=== PATIENT | female | born 1950 | race Caucasian/White ===

== ENCOUNTER → 2017-09-02 07:41 | Outpatient (CLI) | payer MEDICARE, BC, SELFPAY ==
[2017-09-02 10:24] LABS: Anion Gap 9 (5-15); BUN 12 mg/dL (7-18); BUN/Creat Ratio 22.6 RATIO (10-20); Calcium,Total 8.8 mg/dL (8.5-10.1); Chloride 99 mmol/L (98-107); Creatinine, Serum 0.53 mg/dL (0.55-1.02); EST Glomerular Filtration Rate 121 mL/min (>60); Est Glom Filt Rate - Afr Amer 146 mL/min (>60); Glucose 91 mg/dL (74-106); Sodium Level 134 mmol/L (136-145); Thyroid Stim Hormone (TSH) 2.39 uIU/mL (0.358-3.74)
== END ==
PROVIDERS: Family Provider Family Medicine; PCP Family Medicine; Visit Provider Family Medicine
DX: E22.2 Syndrome of inappropriate secretion of antidiuretic hormone (principal); M85.80 Other specified disorders of bone density and structure, unspecified site; E03.9 Hypothyroidism, unspecified
CPT/HCPCS: 36415; 80048; 82306; 84443

== ENCOUNTER → 2017-11-02 09:43 | Outpatient (CLI) | payer MEDICARE, BC, SELFPAY ==
--- NOTE | 2017-11-02 09:46 | RAD_ITS ---
STUDY: X-RAY - LUMBAR SPINE REASON FOR EXAM: Female, 67 years old. Lower back pain for about a month TECHNIQUE: 5 view(s) of the lumbar spine were obtained. COMPARISON: None FINDINGS: Normal lumbar lordosis. There is no substantial scoliosis. There is a normal alignment of the vertebrae. There is mild multilevel endplate spondylosis of the lumbar vertebrae. Normal disc space heights. Mild facet arthropathy L5-S1, less L4-5 Possible splenic granulomata. RAD/L/S Spine Min 4 Views IMPRESSION: Mild degenerative changes. Electronically Signed: Ginger Muir MD at 3:52 EDT , Service support ,
== END ==
PROVIDERS: Family Provider Family Medicine; PCP Family Medicine; Visit Provider Family Medicine
DX: M47.896 Other spondylosis, lumbar region (principal)
CPT/HCPCS: 72110

== ENCOUNTER 2017-12-21 10:30 | Outpatient (RCR) | payer MEDICARE, BC, SELFPAY ==
--- NOTE | 2017-11-08 14:08 | HP.PTEVAL_ITS ---
Patient's Visit Information FRIDA WILLIAMSON is a 67 year old F referred to Physical Therapy by Manohar Goodrich with a diagnosis of DDD. Date of Evaluation: 11/08/17 Physical Therapist: Serge Castro PT, - Visit Plan Frequency: 2-3x /Week Duration: 4-6 Weeks Plan: SKTC/DKTC, core stab ex's, postural edu, nustep, and HEP - Subjective Subjective: Pt reports she has had LBP for approximately 6 weeks. Pt reports her pain had an insidious onset in nature. Pain is centered in her LB. Pt denies any LE radiculopathy at this time. Pt reports walking tends to increase her pain. Pt reports the only thing that helps with her pain is Advil. Xrays recently, DDD. Pt has osteopenia. Pt reports sleep diff at this time secondary to pain. Pt reports if she sleeps in a supine position, it helps to decrease her pain. Pain is constant in nature. 7/10 pain at rest, 10/10 at worst. - Pain LBP Pain Intensity (Out of 10): 7 Pain Intensity Range: 10 - Objective Neuro: B LE sensation is WNL to light touch. B patellar reflex= 2/3. LE MMT: B LE's 5/5 throughout. L/S ROM: Pt is limited with L/S extension ROM. All other ranges are WNL. Repeated movements: RFIS and MARTY both increase central LBP. RFIL SKTC/DKTC decrreased pain overall - Goals Goal 1:: Decrease LBP x 50% to aid with sleep Goal Time Frame: 4-6 Weeks Goal 2:: Increase core strength x 1 grade to allow pt to ambulate further without limitation Goal Time Frame: 4-6 Weeks Goal 3:: I with HEP Goal Time Frame: 4-6 Weeks - Rehabilitation Potential Physical Therapy Diagnosis: LBP, decreased L/S ROM, and limitations with gait secondary to DDD Rehabilitation Potential: Good - Anticipated Interventions Patient/Client Instruction: Educate patient on: Condition, Plan of Care For the Purpose of:: To improve self management Therapeutic Exercise to Include: Strength training, Endurance training, Postural training, Active ROM, Dynamic Lumbar Stabilization For the Purpose of:: To decrease pain, To increase ROM, To improve muscle performance and motor function Cryotherapy (ice pack, ice massage): Yes For the Purpose of:: To decrease pain Thank you for the opportunity to evaluate your patient. For Medicare and Medicare HMO plans, please review the plan of care and approve it. It will need to be FAXED BACK to us at [phone] for Medicare purposes. Please let me know if there are questions or concerns regarding this plan of care. Physician Signature: Date:
--- NOTE | 2017-12-07 13:31 | HP.PTREVAL ---
Manohar Goodrich, It has been my pleasure to treat FRIDA WILLIAMSON over the last 9 visits for DDD. Please see the progress note below for an update on the physical therapy plan of care! Subjective: Only minor pain this date Objective/Function: Pain has lessened, but pt still limited with sleep and stair negotiation. Pt is able to ambulate approximately 1020 feet I prior to LBP limiting her. Plan Plan: Cont 2 times per week for 3 more weeks Goals Goal 1:: Decrease LBP x 50% to aid with sleep Goal Time Frame: 4-6 Weeks Goal Progress: Progressing Goal 2:: Increase core strength x 1 grade to allow pt to ambulate further without limitation Goal Time Frame: 4-6 Weeks Goal Progress: Progressing Goal 3:: I with HEP Goal Time Frame: 4-6 Weeks Goal Progress: Goal Met Anticipated Interventions Patient/Client Instruction: Educate patient on: Condition, Plan of Care For the Purpose of:: To improve self management Therapeutic Exercise to Include: Strength training, Endurance training, Postural training, Active ROM, Dynamic Lumbar Stabilization For the Purpose of:: To decrease pain, To increase ROM, To improve muscle performance and motor function Cryotherapy (ice pack, ice massage): Yes For the Purpose of:: To decrease pain Please do not hesitate to contact me at [phone] by phone or if you have questions or concerns regarding this new plan of care! Sincerely, Serge Castro, PT,
--- NOTE | 2017-12-07 13:35 | HP.PTREVAL_ITS ---
Manohar Goodrich, It has been my pleasure to treat FRIDA WILLIAMSON over the last 9 visits for DDD. Please see the progress note below for an update on the physical therapy plan of care! Subjective: Only minor pain this date Objective/Function: Pain has lessened, but pt still limited with sleep and stair negotiation. Pt is able to ambulate approximately 1020 feet I prior to LBP limiting her. Plan Plan: Cont 2 times per week for 3 more weeks Goals Goal 1:: Decrease LBP x 50% to aid with sleep Goal Time Frame: 4-6 Weeks Goal Progress: Progressing Goal 2:: Increase core strength x 1 grade to allow pt to ambulate further without limitation Goal Time Frame: 4-6 Weeks Goal Progress: Progressing Goal 3:: I with HEP Goal Time Frame: 4-6 Weeks Goal Progress: Goal Met Anticipated Interventions Patient/Client Instruction: Educate patient on: Condition, Plan of Care For the Purpose of:: To improve self management Therapeutic Exercise to Include: Strength training, Endurance training, Postural training, Active ROM, Dynamic Lumbar Stabilization For the Purpose of:: To decrease pain, To increase ROM, To improve muscle performance and motor function Cryotherapy (ice pack, ice massage): Yes For the Purpose of:: To decrease pain Please do not hesitate to contact me at [phone] by phone or Fax: if you have questions or concerns regarding this new plan of care! Sincerely, Serge Castro, PT,
--- NOTE | 2017-12-21 10:30 | DT_ITS ---
This patient was seen during an EMR downtime December 19, 2017 - December 26, 2017. This patient may have a combination of paper and electronic documentation or all paper documentation. All documentation is viewable within the e-chart portion of [employer] for each patient visit.
--- NOTE | 2018-01-16 11:06 | HP.PTDCSUM ---
HP - PT D/C Summary It has been my pleasure to treat FRIDA WILLIAMSON under orders from Manohar Goodrich, for the diagnosis of DDD for a total of 12 visit(s). Discharge Date: Please see the following information for a summary of their discharge status. - Subjective Subjective: This note is documented after computer downtime. Pt feels she is painfree and I with all ex's - Pain LBP Pain Intensity (Out of 10): 0 - Overall Improvement % Improvement: 80 - Objective Objective/Function: Pt was I with all ex's and is painfree at this time - Goals Goal 1:: Decrease LBP x 50% to aid with sleep Goal Progress: Goal Met Goal 2:: Increase core strength x 1 grade to allow pt to ambulate further without limitation Goal Progress: Goal Met Goal 3:: I with HEP Goal Progress: Goal Met - Plan Plan: Discharge - D/C Information If there are questions or concerns regarding this patient's physical therapy, please feel free to call me at [phone]. Thank you for the referral of this patient. Sincerely, Serge Castro, PT,
== END 2017-12-21 19:00 | disposition home or self-care (01) ==
LOC: PT 10:30
PROVIDERS: Family Provider Family Medicine; PCP Family Medicine; Visit Provider Family Medicine
DX: M51.36 Other intervertebral disc degeneration, lumbar region (principal)
CPT/HCPCS: 97110; 97161; 97530

== ENCOUNTER → 2018-03-03 07:25 | Outpatient (CLI) | payer MEDICARE, BC, SELFPAY ==
[2018-03-03 11:03] LABS: Anion Gap 7 (5-15); BUN 8 mg/dL (7-18); BUN/Creat Ratio 14.2 RATIO (10-20); Calcium,Total 8.7 mg/dL (8.5-10.1); Chloride 99 mmol/L (98-107); Cholesterol 224 mg/dL (200); Creatinine, Serum 0.56 mg/dL (0.55-1.02); EST Glomerular Filtration Rate 113 mL/min (>60); Est Glom Filt Rate - Afr Amer 137 mL/min (>60); Glucose 87 mg/dL (74-106); High Density Lipoprotein 96 mg/dL; Potassium 4.3 mmol/L (3.5-5.1); Sodium Level 134 mmol/L (136-145); Thyroid Stim Hormone (TSH) 2.46 uIU/mL (0.358-3.74); Triglycerides 37 mg/dL; Very Low Density Lipoprotein 7 mg/dL (5-40)
== END ==
PROVIDERS: Family Provider Family Medicine; PCP Family Medicine; Visit Provider Family Medicine
DX: E03.9 Hypothyroidism, unspecified (principal); Z13.1 Encounter for screening for diabetes mellitus; Z13.220 Encounter for screening for lipoid disorders
CPT/HCPCS: 36415; 80048; 80061; 84443

== ENCOUNTER 2018-06-15 13:00 | Outpatient (RCR) | payer MEDICARE, BC, SELFPAY ==
--- NOTE | 2018-05-24 13:07 | HP.PTEVAL ---
Patient's Visit Information FRIDA WILLIAMSON is a 68 year old F referred to Physical Therapy by Manohar Goodrich with a diagnosis of neck pain. Date of Evaluation: 05/24/18 Physical Therapist: Serge Castro, PT, - Visit Plan Frequency: 2-3x /Week Duration: 4 Weeks Plan: postural edu, retraction ex's, c/s traction, DTR, and HEP - Subjective Subjective: Pt reports her neck has been sore for 3 weeks. Pt reports her pain had an insidious onset in nature. Pt has never had pain like this before. Pt reports she has been using ice, MH, and advil, none of which are working to control her pain. Pt reports she is very limited with her IADL's due to pain. Pain is on the R side of her neck. Pt reports she is having sig sleep difficulty secondary to pain. Pain is constant in nature. No tingling or numbness in UE's at this time. Pt reports no Dx tests at this time. Pt reports she gets ELLISON's as a result of this pain. 7/10 pain at rest, which is constant throughout the day. Pain is dull and achy. - Pain neck pain Pain Intensity (Out of 10): 7 Pain Intensity Range: 7 - Objective Neuro: B UE sensation is WNL to light touch. B bicepital reflex= 2/3. Palpation: Pt has sig muscle guarding in her C/S. No obvious deformity. ROM: extension, R SB and rot all are moderately limited and result in increased pain. MMT: B UE's are 5/5 throughout. Repeated movements: RFIS 10x3 better, RRIS 10x3 NE. Special tests: pos ompression and distraction tests of c/s - Goals Goal 1:: Decrease neck pain x 50% to aid with sleep Goal Time Frame: 4-6 Weeks Goal 2:: Increase cervical spine ROM to WNL to aid with IADL's Goal Time Frame: 4-6 Weeks Goal 3:: Pt will both physically and verbally display proper posture in order to prevent future neck pain Goal Time Frame: 4-6 Weeks Goal 4:: I with HEP Goal Time Frame: 4-6 Weeks - Rehabilitation Potential Physical Therapy Diagnosis: Pt has neck pain, limited cervical spine ROM, and sleep difficulty secondary to deg changesin the c/s Rehabilitation Potential: Good - Anticipated Interventions Patient/Client Instruction: Educate patient on: Condition, Plan of Care For the Purpose of:: To improve self management Therapeutic Exercise to Include: Strength training, Body mechanics, Postural training, Isai Exercises, Scapular Strength/Stabilization For the Purpose of:: To decrease pain, To increase ROM, To improve muscle performance and motor function Manual Therapy Techniques to Include: Soft tissue mobilization For the Purpose of:: To decrease pain Intermittent cervical traction: Yes For the Purpose of:: To decrease pain Thank you for the opportunity to evaluate your patient. For Medicare and Medicare HMO plans, please review the plan of care and approve it. It will need to be FAXED BACK to us at [phone] for Medicare purposes. Please let me know if there are questions or concerns regarding this plan of care. Physician Signature: Date:
--- NOTE | 2018-08-08 13:28 | HP.PT.NRP ---
HP - Discharge Summary (1) - Patient Information FRIDA WILLIAMSON was seen in my office for initial evaluation on 05/24/18. The following Plan of Care was established for this patient: Initial Frequency: 2-3x /Week Initial Duration: 4 Weeks - Anticipated Interventions Patient/Client Instruction: Educate patient on: Condition, Plan of Care For the Purpose of:: To improve self management Therapeutic Exercise to Include: Strength training, Body mechanics, Postural training, Isai Exercises, Scapular Strength/Stabilization For the Purpose of:: To decrease pain, To increase ROM, To improve muscle performance and motor function Manual Therapy Techniques to Include: Soft tissue mobilization For the Purpose of:: To decrease pain Intermittent cervical traction: Yes For the Purpose of:: To decrease pain This patient was last seen in our office . Pertinent comments regarding their Physical therapy will appear below: Pt was treated for 5 PT visits for her neck pain through the date of 06/15/18. Pt has not returned through this date and is therefore discontinued at this time. At this point I will be discontinuing this patient from physical therapy. I would be happy to see this patient again in the future if found appropriate by the physician. Thank you! Serge Castro, PT, ATC
== END 2018-06-15 19:00 | disposition home or self-care (01) ==
LOC: PT 13:00
PROVIDERS: Family Provider Family Medicine; PCP Family Medicine; Referring Provider Family Medicine; Visit Provider Family Medicine
DX: S46.811D Strain of other muscles, fascia and tendons at shoulder and upper arm level, right arm, subsequent encounter (principal)
CPT/HCPCS: 97012; 97110; 97162

== ENCOUNTER → 2019-03-15 08:09 | Outpatient (CLI) | payer MEDICARE, BC, SELFPAY ==
[2019-03-15 10:30] LABS: Vitamin D,25 Hydroxy 42.6 ng/mL (29.95-100.01)
[2019-03-15 10:44] LABS: Anion Gap 8 (5-15); BUN 12 mg/dL (7-18); BUN/Creat Ratio 22.3 RATIO (10-20); Calcium,Total 8.6 mg/dL (8.5-10.1); Chloride 103 mmol/L (98-107); Cholesterol 214 mg/dL (200); Creatinine, Serum 0.54 mg/dL (0.55-1.02); EST Glomerular Filtration Rate 119 mL/min (>60); Est Glom Filt Rate - Afr Amer 144 mL/min (>60); Glucose 83 mg/dL (74-106); High Density Lipoprotein 97 mg/dL; Potassium 4.2 mmol/L (3.5-5.1); Sodium Level 137 mmol/L (136-145); Thyroid Stim Hormone (TSH) 1.98 uIU/mL (0.358-3.74); Triglycerides 52 mg/dL; Very Low Density Lipoprotein 10 mg/dL (5-40)
== END ==
PROVIDERS: Family Provider Family Medicine; PCP Family Medicine; Referring Provider Family Medicine; Visit Provider Family Medicine
DX: E03.9 Hypothyroidism, unspecified (principal); E22.2 Syndrome of inappropriate secretion of antidiuretic hormone; M85.50 Aneurysmal bone cyst, unspecified site; Z13.220 Encounter for screening for lipoid disorders
CPT/HCPCS: 36415; 80048; 80061; 82306; 84443

== ENCOUNTER → 2019-05-28 11:25 | Outpatient (CLI) | payer MEDICARE, BC, SELFPAY ==
[2019-05-28 14:35] LABS: Absolute Lymphocyte Count 2.76 X10^3/uL (0.83-4.51); Absolute Neutrophil Count 4.8 X10^3/uL (2.0-7.7); Basophil# 0.11 X10^3/uL; Basophil% 1.3 % (0-1); Eosinophil# 0.14 X10^3/uL; Eosinophils% 1.6 % (0-5); Hematocrit 40.4 % (37-47); Hemoglobin 13.5 g/dL (12.0-15.0); Lymphocyte # 2.76 X10^3/ul (4.0); Lymphocyte % 31.8 % (19-41); Mean Corp Hgb Conc 33.4 g/dL (32-36); Mean Corpuscular Hgb 32.9 pg (27.0-32.0); Mean Corpuscular Volume 98.5 fL (81-99); Mean Platelet Vol. 10.8 fl (6.2-12.0); Monocyte% 9.2 % (0-10); NRBC Flagged by Analyzer 0 % (0-5); Neutrophil # 4.84 X10^3/uL (2.7-7.7); Neutrophil % 55.9 % (47-70); Platelet Count 334 K/mm3 (150-450); RBC Distribution Width CV 12.4 % (11.6-14.6); RBC Distribution Width SD 45.1 fl (35.1-43.9); White Blood Count 8.7 K/mm3 (4.4-11.0)
[2019-05-28 14:47] LABS: Anion Gap 9 (5-15); BUN 16 mg/dL (7-18); BUN/Creat Ratio 25.1 RATIO (10-20); Calcium,Total 9.2 mg/dL (8.5-10.1); Chloride 100 mmol/L (98-107); Creatinine, Serum 0.64 mg/dL (0.55-1.02); EST Glomerular Filtration Rate 98 mL/min (>60); Est Glom Filt Rate - Afr Amer 118 mL/min (>60); Glucose 85 mg/dL (74-106); Potassium 4.5 mmol/L (3.5-5.1); Sodium Level 136 mmol/L (136-145)
== END ==
PROVIDERS: Family Provider Family Medicine; PCP Family Medicine; Referring Provider Family Medicine; Visit Provider Nurse Practitioner Adult Health
DX: K92.1 Melena (principal)
CPT/HCPCS: 36415; 80048; 85025

== ENCOUNTER → 2019-06-26 16:18 | Outpatient (CLI) | payer MEDICARE, BC, SELFPAY ==
[2019-06-26 17:55] LABS: Absolute Lymphocyte Count 2.74 X10^3/uL (0.83-4.51); Absolute Neutrophil Count 4.5 X10^3/uL (2.0-7.7); Basophil# 0.09 X10^3/uL; Basophil% 1.1 % (0-1); Eosinophil# 0.17 X10^3/uL; Eosinophils% 2.1 % (0-5); Hematocrit 37.4 % (37-47); Hemoglobin 12.7 g/dL (12.0-15.0); Lymphocyte # 2.74 X10^3/ul (4.0); Lymphocyte % 33.3 % (19-41); Mean Corpuscular Hgb 32.4 pg (27.0-32.0); Mean Corpuscular Volume 95.4 fL (81-99); Mean Platelet Vol. 10.7 fl (6.2-12.0); Monocyte# 0.71 X10^3/uL; Monocyte% 8.6 % (0-10); NRBC Flagged by Analyzer 0 % (0-5); Neutrophil # 4.52 X10^3/uL (2.7-7.7); Neutrophil % 54.8 % (47-70); Platelet Count 350 K/mm3 (150-450); RBC Distribution Width CV 12.2 % (11.6-14.6); RBC Distribution Width SD 42.9 fl (35.1-43.9); Red Blood Count 3.92 M/mm3 (4.2-5.4); White Blood Count 8.2 K/mm3 (4.4-11.0)
[2019-06-26 18:42] LABS: Erythrocyte Sedimentation Rate 3 mm/hr (0-30)
[2019-06-26 18:50] LABS: ALB/GLOB Ratio 1.1 RATIO (0.9-2.4); AST(SGOT) 19 U/L (15-37); Alanine Aminotransfer ALT/SGPT 25 U/L (13-56); Alkaline Phosphatase 63 U/L (45-117); Anion Gap 8 (5-15); BUN 17 mg/dL (7-18); BUN/Creat Ratio 28.5 RATIO (10-20); Calcium,Total 8.7 mg/dL (8.5-10.1); Chloride 99 mmol/L (98-107); EST Glomerular Filtration Rate 105 mL/min (>60); Est Glom Filt Rate - Afr Amer 127 mL/min (>60); Globulin 3.5 g/dL (2.2-4.2); Glucose 89 mg/dL (74-106); Potassium 3.8 mmol/L (3.5-5.1); Protein, Total 7.5 g/dL (6.4-8.2); Sodium Level 133 mmol/L (136-145)
[2019-06-30 03:06] LABS: Beef <0.10 kU/L (Class 0); Corn <0.10 kU/L (Class 0); Egg, Whole <0.10 kU/L (Class 0); Milk (Cow) <0.10 kU/L (Class 0); Peanut <0.10 kU/L (Class 0); Pork <0.10 kU/L (Class 0); Soybean <0.10 kU/L (Class 0); Wheat <0.10 kU/L (Class 0)
[2019-07-01 11:30] LABS: Chocolate <0.10 kU/L (Class 0)
== END ==
PROVIDERS: Family Provider Family Medicine; PCP Family Medicine; Visit Provider Family Medicine
DX: R19.7 Diarrhea, unspecified (principal)
CPT/HCPCS: 36415; 80053; 84443; 85025; 85652; 86003; 86005

== ENCOUNTER → 2019-06-28 12:28 | Outpatient (CLI) | payer MEDICARE, BC, SELFPAY | PROVIDERS: Family Provider Family Medicine; PCP Family Medicine; Referring Provider Family Medicine; Visit Provider Family Medicine | DX: R19.7 Diarrhea, unspecified (principal) | CPT/HCPCS: 82274; 83630; 87177; 87209; 87493; 87506 ==

== ENCOUNTER → 2020-02-08 09:19 | Outpatient (CLI) | payer MEDICARE, BC, SELFPAY ==
[2020-02-13 12:08] LABS: Alternaria alternata <0.10 kU/L (Class 0); Aspergillus fumigatus <0.10 kU/L (Class 0); Bahia Grass <0.10 kU/L (Class 0); Bermuda Grass <0.10 kU/L (Class 0); Bluegrass, Kentucky <0.10 kU/L (Class 0); Cat Hair/Dander, Standard <0.10 kU/L (Class 0); Cedar, Mountain <0.10 kU/L (Class 0); Cladosporium herbarum <0.10 kU/L (Class 0); Cockroach, American <0.10 kU/L (Class 0); D farinae Mite <0.10 kU/L (Class 0); D pteronyssinus <0.10 kU/L (Class 0); Dog Epithelia <0.10 kU/L (Class 0); Elm, American White <0.10 kU/L (Class 0); Hazelnut Tree <0.10 kU/L (Class 0); Hickory, White <0.10 kU/L (Class 0); Johnson Grass <0.10 kU/L (Class 0); Maple/Box Elder <0.10 kU/L (Class 0); Mucor racemosus <0.10 kU/L (Class 0); Mugwort <0.10 kU/L (Class 0); Mulberry, White <0.10 kU/L (Class 0); Oak, White <0.10 kU/L (Class 0); Penicillium chrysogen <0.10 kU/L (Class 0); Pigweed, Rough <0.10 kU/L (Class 0); Plantain, English <0.10 kU/L (Class 0); Ragweed, Short/Common <0.10 kU/L (Class 0); Sheep Sorrel(Dock) <0.10 kU/L (Class 0); Stemphylium herbarum <0.10 kU/L (Class 0); Sweet Gum <0.10 kU/L (Class 0); Sycamore, American <0.10 kU/L (Class 0)
[2020-02-13 13:17] LABS: Nettle <0.10 kU/L (Class 0)
== END ==
PROVIDERS: PCP Family Medicine; Referring Provider Family Medicine; Visit Provider Family Medicine
DX: T78.40XA Allergy, unspecified, initial encounter (principal)
CPT/HCPCS: 36415; 86003

== ENCOUNTER → 2020-03-17 10:36 | Outpatient (CLI) | payer MEDICARE, BC, SELFPAY ==
[2020-03-17 12:16] LABS: Vitamin D,25 Hydroxy 55.1 ng/mL
[2020-03-17 12:29] LABS: Anion Gap 6 (5-15); BUN 12 mg/dL (7-18); BUN/Creat Ratio 23.1 RATIO (10-20); Calcium,Total 8.9 mg/dL (8.5-10.1); Chloride 96 mmol/L (98-107); Cholesterol 238 mg/dL (200); Creatinine, Serum 0.52 mg/dL (0.55-1.02); EST Glomerular Filtration Rate 123 mL/min (>60); Est Glom Filt Rate - Afr Amer 149 mL/min (>60); Glucose 88 mg/dL (74-106); High Density Lipoprotein 107 mg/dL; Potassium 4.7 mmol/L (3.5-5.1); Sodium Level 129 mmol/L (136-145); Thyroid Stim Hormone (TSH) 1.22 uIU/mL (0.358-3.74); Triglycerides 38 mg/dL; Very Low Density Lipoprotein 8 mg/dL (5-40)
== END ==
PROVIDERS: PCP Family Medicine; Referring Provider Family Medicine; Visit Provider Family Medicine
DX: I10 Essential (primary) hypertension (principal); M85.80 Other specified disorders of bone density and structure, unspecified site; E03.9 Hypothyroidism, unspecified
CPT/HCPCS: 36415; 80048; 80061; 82306; 84443

== ENCOUNTER → 2020-03-27 14:41 | Outpatient (CLI) | payer MEDICARE, BC, SELFPAY ==
--- NOTE | 2020-03-27 14:47 | BD_ITS ---
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 COMPARISON: None. FINDINGS: Lumbar Spine (L1-L4): g/cm2 (0.896) / T-score (-2.4) / Z-score (-0.7) Findings are suggestive of osteopenia with a high fracture risk. Left Femur Total: g/cm2 (0.840) / T-score (-1.3) / Z-score (0.2) Left Femoral Neck: g/cm2 (0.797) / T-score (-1.7) / Z-score (0.1) Right Femur Total: g/cm2 (0.810) / T-score (-1.6) / Z-score (0.0) Right Femoral Neck: g/cm2 (0.775) / T-score (-1.9) / Z-score (-0.1) BD/Dexa Bone Density Study IMPRESSION: The patient is considered osteopenic as outlined below according to World [employer] Organization (WHO) criteria with a high fracture risk. Reference Information: The T-score is the number of standard deviations above or below the standard which is normal for young adults at their peak bone mineral density. The World Health Organization (WHO) interprets the T-scores as follows: Above -1 Normal bone density Between -1 and -2.5 Osteopenia Equal to / or below -2.5 Osteoporosis As a practical clinical guideline, osteopenia may be graded as follows: Mild -1 through -1.5 Moderate -1.6 through -2.0 Severe -2.1 through -2.4 The Z-score is the number of standard deviations above or below age-matched controls. A Z-score of less than -1.5 would be considered abnormal. References: 1. NIH Osteoporosis and Related Bone Diseases http://www.osteo.org 2. International Society for Clinical Densitometry http://www.iscd.org 3. National Osteoporosis Foundation http://www.nof.org Electronically Signed: Travis Riberio, at 12:35 EDT , Service support ,
== END ==
PROVIDERS: PCP Family Medicine; Referring Provider Family Medicine; Visit Provider Family Medicine
DX: Z78.0 Asymptomatic menopausal state (principal)
CPT/HCPCS: 77080

== ENCOUNTER → 2020-03-31 08:20 | Outpatient (CLI) | payer MEDICARE, BC, SELFPAY ==
[2020-03-31 10:44] LABS: Anion Gap 5 (5-15); BUN 16 mg/dL (7-18); BUN/Creat Ratio 25.7 RATIO (10-20); Calcium,Total 9.2 mg/dL (8.5-10.1); Chloride 101 mmol/L (98-107); Creatinine, Serum 0.62 mg/dL (0.55-1.02); EST Glomerular Filtration Rate 100 mL/min (>60); Est Glom Filt Rate - Afr Amer 121 mL/min (>60); Glucose 92 mg/dL (74-106); Potassium 4.5 mmol/L (3.5-5.1); Sodium Level 135 mmol/L (136-145)
== END ==
PROVIDERS: PCP Family Medicine; Referring Provider Family Medicine; Visit Provider Family Medicine
DX: E87.1 Hypo-osmolality and hyponatremia (principal)
CPT/HCPCS: 36415; 80048

== ENCOUNTER → 2020-07-21 16:45 | Outpatient (CLI) | payer MEDICARE, BC, SELFPAY ==
--- NOTE | 2020-07-21 16:51 | RAD_ITS ---
STUDY: X-RAY - LEFT WRIST REASON FOR EXAM: Female, 70 years old. Left wrist pain, swelling, and bruising from a fall 5 days ago TECHNIQUE: 3 view(s) of the wrist were obtained. COMPARISON: None. FINDINGS: Nondisplaced transverse fracture of the distal radial metaphysis. Normal radiocarpal articulation. Normal distal radioulnar articulation. Normal carpal bones. Normal carpal articulations. There is degenerative arthrosis of the carpometacarpal articulation of the thumb. Normal second through fifth carpometacarpal articulations. Normal visualized metacarpal bones. Soft tissue swelling. RAD/Wrist min 3 Views IMPRESSION: There is a nondisplaced transverse fracture involving the distal radial metaphysis with overlying soft tissue swelling. Electronically Signed: Travis Ribeiro, at 9:37 EST , Service support ,
== END ==
PROVIDERS: PCP Family Medicine; Referring Provider Family Medicine; Visit Provider Family Medicine
DX: M25.532 Pain in left wrist (principal)
CPT/HCPCS: 73110

== ENCOUNTER → 2020-09-08 11:57 | Outpatient (CLI) | payer MEDICARE, BC, SELFPAY ==
--- NOTE | 2020-09-08 11:59 | RAD_ITS ---
STUDY: X-RAY - LEFT WRIST REASON FOR EXAM: Follow-up distal radial fracture after cast removal. TECHNIQUE: 3 view(s) of the wrist were obtained. COMPARISON: Radiographs 07/21/2020. FINDINGS: There is osteopenia. There is a healing mildly impacted fracture of the distal radius. There is a small avulsion fracture of the ulnar styloid process. Normal radiocarpal articulation. Normal distal radioulnar articulation. Normal carpal bones. There is joint space narrowing of the lunate-capitate articulation. There are marginal osteophytes and joint space narrowing of the carpometacarpal articulation of the thumb. Normal second through fifth carpometacarpal articulations. Normal visualized metacarpal bones. The soft tissue structures are unremarkable. RAD/Wrist min 3 Views IMPRESSION: Healing mildly impacted fracture of the distal radius. Small avulsion fracture of the ulnar styloid process. 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 Electronically Signed: Deshaun Glass MD at 13:41 EST Tel , Service support ,
== END ==
PROVIDERS: PCP Family Medicine; Referring Provider Family Medicine; Visit Provider Family Medicine
DX: S52.502A Unspecified fracture of the lower end of left radius, initial encounter for closed fracture (principal)
CPT/HCPCS: 73110

== ENCOUNTER → 2020-09-15 08:58 | Outpatient (CLI) | payer MEDICARE, BC, SELFPAY ==
[2020-09-15 10:59] LABS: Anion Gap 7 (5-15); BUN 12 mg/dL (7-18); Chloride 97 mmol/L (98-107); EST Glomerular Filtration Rate 104 mL/min (>60); Est Glom Filt Rate - Afr Amer 126 mL/min (>60); Glucose 104 mg/dL (74-106); Potassium 3.8 mmol/L (3.5-5.1); Sodium Level 130 mmol/L (136-145); Thyroid Stim Hormone (TSH) 3.82 uIU/mL (0.358-3.74)
== END ==
PROVIDERS: PCP Family Medicine; Referring Provider Family Medicine; Visit Provider Family Medicine
DX: I10 Essential (primary) hypertension (principal); E03.9 Hypothyroidism, unspecified
CPT/HCPCS: 36415; 80048; 84443

== ENCOUNTER → 2020-10-15 08:30 | Outpatient (CLI) | payer MEDICARE, BC, SELFPAY ==
[2020-10-15 10:45] LABS: Anion Gap 8 (5-15); BUN 14 mg/dL (7-18); BUN/Creat Ratio 25.8 RATIO (10-20); Chloride 98 mmol/L (98-107); Creatinine, Serum 0.54 mg/dL (0.55-1.02); EST Glomerular Filtration Rate 117 mL/min (>60); Est Glom Filt Rate - Afr Amer 142 mL/min (>60); Glucose 88 mg/dL (74-106); Potassium 4.4 mmol/L (3.5-5.1); Sodium Level 133 mmol/L (136-145); T4 Free Direct 1.03 ng/dL (0.76-1.46); Thyroid Stim Hormone (TSH) 1.01 uIU/mL (0.358-3.74)
== END ==
PROVIDERS: PCP Family Medicine; Referring Provider Family Medicine; Visit Provider Family Medicine
DX: E03.9 Hypothyroidism, unspecified (principal)
CPT/HCPCS: 36415; 80048; 84439; 84443

== ENCOUNTER 2020-10-28 09:30 | Outpatient (RCR) | payer MEDICARE, BC, SELFPAY ==
--- NOTE | 2020-09-18 12:26 | HP.OTEVAL_ITS ---
Patient's Visit Information FRIDA WILLIAMSON is a 70 year old F, referred to Occupational Therapy by Dr. Esteban Goodrich MD, with a diagnosis of left distal radius fx. Date of Evaluation: 09/18/20 Occupational Therapist: Alda Anderson, [place], CHT - Subjective This 70 year old female was seen for OT eval with dx of a left distal readius fx. pt states she had a fall on 2020. Pt states she waited [address] Goodrich and he took xray and casted pt. pt states she did have some discomfort where cast was digging into her. pt states cast was removed on 09/08/20. pt has been doing movement on her own but pt is still limted with ROM. pt is right handed. - Pain left wrist 4 Pain Intensity Range: 1, 6 - ROM Forearm: right/left WNL left with pain with supination Wrist: right 65/60 left 45/25 ROM Comments: left RD20 UD 25. right RD 20 UE 30 - Strength Cart Attendant: right 48# left 8# Lateral Pinch: right 12# left 8# Tripod Pinch: right 6# left 4# - Sensation Sensation Comments: denies - Quick DASH-Disab of Arm,Shoulder& Hand Quick DASH Score: 34.0900 - Rehabilitation General Assessment: Pt is 8 weeks 6 days from a left distal radius fx. pt demo with a reduction in functional ROM strength and pain with use of left UE with ADLs and IADLs. Pt would benefit from skilled OT services 1x week for 4 weeks to return pt to PLOF. Today therapist ed. pt on PROM, AROM and increase use as felix. with ADLs and IADls. Pt demo understanding and agreee to POC. Rehabilitation Potential: Good - Anticipated Interventions A/AAROM/PROM, Strengthening, Triggerpoint Release, Modalities, Joint Protection/Energy Conservation - Visit Plan Frequency: 1x/Week Duration: 4 Weeks TEXT: Thank you for the opportunity to evaluate your patient. For Medicare and Medicare HMO plans, please review the plan of care and approve it. It will need to be FAXED BACK to us at [phone] for Medicare purposes. Please let me know if there are questions or concerns regarding this plan of care. Physician Signature: Date:
--- NOTE | 2020-09-19 09:17 | HP.OTEVAL_ITS ---
Patient's Visit Information FRIDA WILLIAMSON is a 70 year old F, referred to Occupational Therapy by Dr. Esteban Goodrich MD, with a diagnosis of left distal radius fx. Date of Evaluation: 09/18/20 Occupational Therapist: Alda Anderson, [place], CHT - Subjective This 70 year old female was seen for OT eval with dx of a left distal readius fx. pt states she had a fall on 2020. Pt states she waited [address] Goodrich and he took xray and casted pt. pt states she did have some discomfort where cast was digging into her. pt states cast was removed on 09/08/20. pt has been doing movement on her own but pt is still limted with ROM. pt is right handed. - Pain left wrist 4 Pain Intensity Range: 1, 6 - ROM Forearm: right/left WNL left with pain with supination Wrist: right 65/60 left 45/25 ROM Comments: left RD20 UD 25. right RD 20 UE 30 - Strength Fire Control System Installer: right 48# left 8# Lateral Pinch: right 12# left 8# Tripod Pinch: right 6# left 4# - Sensation Sensation Comments: denies - Quick DASH-Disab of Arm,Shoulder& Hand Quick DASH Score: 34.0900 - Goals Goal:: pt will demo a increase in left water softener installer strength to 30# or greater to increase pts ind. with ADLs and IADLs by d/c Goal:: pt will demo a increase in left wrist total ROM by 20* to increase pts ind. with ADLs and IADLs by d/c Goal:: pt will report no pain greater than 1/10 with use of left UE with ADLs and IADLs by d/c - Rehabilitation General Assessment: Pt is 8 weeks 6 days from a left distal radius fx. pt demo with a reduction in functional ROM strength and pain with use of left UE with ADLs and IADLs. Pt would benefit from skilled OT services 1x week for 4 weeks to return pt to PLOF. Today therapist ed. pt on PROM, AROM and increase use as eflix. with ADLs and IADls. Pt demo understanding and agreee to POC. Rehabilitation Potential: Good - Anticipated Interventions A/AAROM/PROM, Strengthening, Triggerpoint Release, Modalities, Joint Protection/Energy Conservation - Visit Plan Frequency: 1x/Week Duration: 4 Weeks TEXT: Thank you for the opportunity to evaluate your patient. For Medicare and Medicare HMO plans, please review the plan of care and approve it. It will need to be FAXED BACK to us at [phone] for Medicare purposes. Please let me know if there are questions or concerns regarding this plan of care. Physician Signature: Date:
--- NOTE | 2020-10-28 09:58 | HP.OTDCSUM ---
It has been my pleasure to treat FRIDA WILLIAMSON under orders from Dr. Esteban Goodrich MD, for the diagnosis of left distal radius fx for a total of 4 visit(s). Please see the following information for a summary of their discharge status. % Improvement: 75 Objective/Function: left wrist 50/45. UD 20. RD 20. left manufacturers service representative strength 25#. right 40#. left lateral pinch 10#. left tripod pinch 6#. pt has made great gains with her ROM and strength- pt has met OT goals and will cont with PRE with health and wellness program. Patient Goals: Regain Mobility, Regain Strength, Use Hand/Wrist/Arm Normally Again Goal:: pt will demo a increase in left manufacturers service representative strength to 30# or greater to increase pts ind. with ADLs and IADLs by d/c Goal:: pt will demo a increase in left wrist total ROM by 20* to increase pts ind. with ADLs and IADLs by d/c Goal:: pt will report no pain greater than 1/10 with use of left UE with ADLs and IADLs by d/c Plan: D/C Discharge Comments: pt was seen for 4 OT visits- pt made great gains in ROM and strength and has returned to performing her ADls and IADls at BRADLEY level- pt has met OT goals and will cont with Health and wellness program to cont her recovery. If there are questions or concerns regarding this patient's occupational therapy, please fell free to call me at [phone]. Thank you for the referral of this patient. Sincerely, Alda Anderson, OTR/L, CHT
== END 2020-10-28 19:00 | disposition home or self-care (01) ==
LOC: OT 09:30
PROVIDERS: PCP Family Medicine; Referring Provider Family Medicine; Visit Provider Family Medicine
DX: S52.509D Unspecified fracture of the lower end of unspecified radius, subsequent encounter for closed fracture with routine healing (principal)
CPT/HCPCS: 97110; 97140; 97166; 97530

== ENCOUNTER → 2021-04-06 08:05 | Outpatient (CLI) | payer MEDICARE, BC, SELFPAY ==
[2021-04-06 10:58] LABS: ALB/GLOB Ratio 1.1 RATIO (0.9-2.4); AST(SGOT) 21 U/L (15-37); Alanine Aminotransfer ALT/SGPT 25 U/L (13-56); Albumin, Serum 3.7 g/dL (3.2-5.0); Alkaline Phosphatase 55 U/L (45-117); Anion Gap 9 (5-15); BUN 15 mg/dL (7-18); BUN/Creat Ratio 28.5 RATIO (10-20); Calcium,Total 8.9 mg/dL (8.5-10.1); Chloride 96 mmol/L (98-107); Creatinine, Serum 0.53 mg/dL (0.55-1.02); EST Glomerular Filtration Rate 121 mL/min (>60); Est Glom Filt Rate - Afr Amer 146 mL/min (>60); Globulin 3.3 g/dL (2.2-4.2); Glucose 94 mg/dL (74-106); Potassium 4.4 mmol/L (3.5-5.1); Sodium Level 130 mmol/L (136-145); Thyroid Stim Hormone (TSH) 1.17 uIU/mL (0.358-3.74)
== END ==
PROVIDERS: PCP Family Medicine; Visit Provider Family Medicine
DX: E03.9 Hypothyroidism, unspecified (principal); E87.1 Hypo-osmolality and hyponatremia
CPT/HCPCS: 36415; 80053; 84443

== ENCOUNTER 2021-09-30 10:07 | Outpatient (CLI) | payer MEDICARE, BC, SELFPAY ==
[2021-09-30 12:45] LABS: Anion Gap 4 (5-15); BUN 18 mg/dL (7-18); BUN/Creat Ratio 34.8 RATIO (10-20); Calcium,Total 9.1 mg/dL (8.5-10.1); Chloride 98 mmol/L (98-107); Cholesterol 222 mg/dL (200); Creatinine, Serum 0.52 mg/dL (0.55-1.02); EST Glomerular Filtration Rate 123 mL/min (>60); Est Glom Filt Rate - Afr Amer 149 mL/min (>60); Glucose 95 mg/dL (74-106); High Density Lipoprotein 90 mg/dL; Potassium 4.8 mmol/L (3.5-5.1); Sodium Level 131 mmol/L (136-145); Thyroid Stim Hormone (TSH) 0.73 uIU/mL (0.358-3.74); Triglycerides 38 mg/dL; Very Low Density Lipoprotein 8 mg/dL (5-40)
== END 2021-09-30 23:59 | disposition home or self-care (01) ==
LOC: MFPLAB 10:10
PROVIDERS: PCP Family Medicine; Referring Provider Family Medicine; Visit Provider Family Medicine
DX: E22.2 Syndrome of inappropriate secretion of antidiuretic hormone (principal); I10 Essential (primary) hypertension; E03.9 Hypothyroidism, unspecified
CPT/HCPCS: 36415; 80048; 80061; 84443

== ENCOUNTER → 2022-04-06 | Outpatient (CLI) | payer MEDICARE, BC, SELFPAY ==
[2022-04-06 10:12] LABS: Vitamin D,25 Hydroxy 53.7 ng/mL
[2022-04-06 10:17] LABS: Anion Gap 13 (5-15); BUN 13 mg/dL (7-18); BUN/Creat Ratio 23.5 RATIO (10-20); Calcium,Total 8.8 mg/dL (8.5-10.1); Chloride 99 mmol/L (98-107); Creatinine, Serum 0.55 mg/dL (0.55-1.02); EST Glomerular Filtration Rate 114 mL/min (>60); Est Glom Filt Rate - Afr Amer 138 mL/min (>60); Glucose 100 mg/dL (74-106); Potassium 4.3 mmol/L (3.5-5.1); Sodium Level 136 mmol/L (136-145); Thyroid Stim Hormone (TSH) 1.15 uIU/mL (0.358-3.74)
== END | disposition home or self-care (01) ==
LOC: MFPLAB 08:46
PROVIDERS: PCP Family Medicine; Referring Provider Family Medicine; Visit Provider Family Medicine
DX: E03.9 Hypothyroidism, unspecified (principal); E22.2 Syndrome of inappropriate secretion of antidiuretic hormone; M85.80 Other specified disorders of bone density and structure, unspecified site
CPT/HCPCS: 36415; 80048; 82306; 84443

== ENCOUNTER → 2022-04-15 | Outpatient (CLI) | payer MEDICARE, BC, SELFPAY ==
--- NOTE | 2022-04-15 10:01 | BD_ITS ---
STUDY: DUAL ENERGY X-RAY ABSORPTIOMETRY / DXA REASON FOR EXAM: Female, 72 years old. [id number]. The patient is postmenopausal. TECHNIQUE: Bone Mineral Density (BMD) measurements of lumbar spine and bilateral hips were obtained. COMPARISON: Comparison is made with prior study 03/27/2020. FINDINGS: Lumbar Spine (L1-L4): g/cm2 (0.773) / T-score (-2.5) / Z-score (-0.1) Findings are suggestive of osteopenia with a high fracture risk. Left Femur Total: g/cm2 (0.763) / T-score (-1.5) / Z-score (0.3) Left Femoral Neck: g/cm2 (0.667) / T-score (-1.6) / Z-score (0.4) Right Femur Total: g/cm2 (0.746) / T-score (-1.6) / Z-score (0.1) Right Femoral Neck: g/cm2 (0.646) / T-score (-1.8) / Z-score (0.2) The T-Scores on the most recent prior examination were: Lumbar Spine (L1-L4): There has been worsening of bone density since the previous examination. Left Femur Total: which represents a worsening of 2%. Right Femur Total: which represents a worsening of 0.6%. BD/Dexa Bone Density Study IMPRESSION: The patient is considered osteopenic as outlined below according to World [employer] Organization (WHO) criteria with a high fracture risk. There has been worsening of bone density since the previous examination. Reference Information: The T-score is the number of standard deviations above or below the standard which is normal for young adults at their peak bone mineral density. The World Health Organization (WHO) interprets the T-scores as follows: Above -1 Normal bone density Between -1 and -2.5 Osteopenia Equal to / or below -2.5 Osteoporosis As a practical clinical guideline, osteopenia may be graded as follows: Mild -1 through -1.5 Moderate -1.6 through -2.0 Severe -2.1 through -2.4 The Z-score is the number of standard deviations above or below age-matched controls. A Z-score of less than -1.5 would be considered abnormal. References: 1. NIH Osteoporosis and Related Bone Diseases www osteo.org 2. International Society for Clinical Densitometry www iscd.org 3. National Osteoporosis Foundation www nof.org Electronically Signed: Travis Ribeiro MD at 11:11 EDT ,
== END | disposition home or self-care (01) ==
LOC: OPBD 10:00
PROVIDERS: PCP Family Medicine; Visit Provider Family Medicine
DX: Z78.0 Asymptomatic menopausal state (principal)
CPT/HCPCS: 77080

== ENCOUNTER → 2022-10-25 | Outpatient (CLI) | payer MEDICARE, BC, SELFPAY ==
--- NOTE | 2022-10-25 09:35 | RAD_ITS ---
STUDY: X-RAY - LEFT KNEE REASON FOR EXAM: Female, 72 years old. Pain. TECHNIQUE: 4 view(s) of the knee. COMPARISON: None. FINDINGS: Osteopenia. Normal visualized distal femur. Normal visualized proximal tibia and fibula. Normal proximal tibiofibular articulation. Mild medial compartmental arthrosis. Normal lateral femorotibial compartment. Normal patellofemoral articulation. Normal soft tissues. RAD/Knee 4 or More Views IMPRESSION: Osteopenia with medial compartmental arthrosis. No acute abnormality, chondrocalcinosis or erosive changes. Electronically Signed: Ivan Umaña, at 12:49 EDT ,
== END | disposition home or self-care (01) ==
PROVIDERS: PCP Family Medicine; Referring Provider Family Medicine; Visit Provider Family Medicine
DX: M25.562 Pain in left knee (principal)
CPT/HCPCS: 73564

== ENCOUNTER → 2022-10-26 | Outpatient (CLI) | payer MEDICARE, BC, SELFPAY ==
[2022-10-26 10:34] LABS: Anion Gap 3 (5-15); BUN 10 mg/dL (7-18); BUN/Creat Ratio 17.7 RATIO (10-20); Calcium,Total 9.2 mg/dL (8.5-10.1); Chloride 100 mmol/L (98-107); Cholesterol 240 mg/dL (200); Creatinine, Serum 0.56 mg/dL (0.55-1.02); EST Glomerular Filtration Rate 111 mL/min (>60); Est Glom Filt Rate - Afr Amer 135 mL/min (>60); Glucose 87 mg/dL (74-106); High Density Lipoprotein 116 mg/dL; Sodium Level 132 mmol/L (136-145); T4 Free Direct 0.89 ng/dL (0.76-1.46); Thyroid Stim Hormone (TSH) 2.84 uIU/mL (0.358-3.74); Triglycerides 39 mg/dL; Very Low Density Lipoprotein 8 mg/dL (5-40)
== END | disposition home or self-care (01) ==
LOC: MTLAB 07:06
PROVIDERS: PCP Family Medicine; Referring Provider Family Medicine; Visit Provider Family Medicine
DX: E22.2 Syndrome of inappropriate secretion of antidiuretic hormone (principal); E03.9 Hypothyroidism, unspecified; I10 Essential (primary) hypertension
CPT/HCPCS: 36415; 80048; 80061; 84439; 84443

== ENCOUNTER → 2023-04-20 | Outpatient (CLI) | payer MEDICARE, BC, SELFPAY ==
[2023-04-20 13:05] LABS: Anion Gap 7 (5-15); BUN 13 mg/dL (7-18); BUN/Creat Ratio 26.6 RATIO (10-20); Calcium,Total 8.8 mg/dL (8.5-10.1); Chloride 97 mmol/L (98-107); Creatinine, Serum 0.49 mg/dL (0.55-1.02); EST Glomerular Filtration Rate 131 mL/min (>60); Est Glom Filt Rate - Afr Amer 159 mL/min (>60); Glucose 102 mg/dL (74-106); Potassium 3.8 mmol/L (3.5-5.1); Sodium Level 130 mmol/L (136-145); Thyroid Stim Hormone (TSH) 1.33 uIU/mL (0.358-3.74)
[2023-04-20 13:06] LABS: Vitamin D,25 Hydroxy 46.3 ng/mL
== END | disposition home or self-care (01) ==
LOC: MFPLAB 10:33
PROVIDERS: PCP Family Medicine; Visit Provider Family Medicine
DX: I10 Essential (primary) hypertension (principal); M85.80 Other specified disorders of bone density and structure, unspecified site; E03.9 Hypothyroidism, unspecified
CPT/HCPCS: 36415; 80048; 82306; 84443

== ENCOUNTER → 2023-10-19 | Outpatient (CLI) | payer MEDICARE, BC, SELFPAY ==
[2023-10-19 11:12] LABS: Anion Gap 6 (5-15); BUN 15 mg/dL (7-18); BUN/Creat Ratio 28.1 RATIO (10-20); Calcium,Total 8.7 mg/dL (8.5-10.1); Chloride 98 mmol/L (98-107); Cholesterol 247 mg/dL (200); Creatinine, Serum 0.53 mg/dL (0.55-1.02); EST Glomerular Filtration Rate 119 mL/min (>60); Est Glom Filt Rate - Afr Amer 143 mL/min (>60); Glucose 95 mg/dL (74-106); High Density Lipoprotein 111 mg/dL; Sodium Level 132 mmol/L (136-145); Thyroid Stim Hormone (TSH) 1.56 uIU/mL (0.358-3.74); Triglycerides 37 mg/dL; Very Low Density Lipoprotein 7 mg/dL (5-40)
== END | disposition home or self-care (01) ==
LOC: MFPLAB 09:07
PROVIDERS: PCP Family Medicine; Visit Provider Family Medicine
DX: E03.9 Hypothyroidism, unspecified (principal); I10 Essential (primary) hypertension
CPT/HCPCS: 36415; 80048; 80061; 84443

== ENCOUNTER 2024-05-01 06:59 | Outpatient (CLI) | payer MEDICARE, BC, SELFPAY ==
--- OUTSIDE RECORDS SUMMARY | 2024-05-01 07:03 | XMS RPT_ITS | CCD ---
Author Organization [facility] Care Team Providers Care Parliamentary Librarian Name Role Phone Manohar Goodrich MD Primary Care Provider Allergies Allergy Classification Reported Allergen(s) Allergy Type Date of Onset Reaction(s) Facility (8 sources) Benzalkonium Drug Allergy 06-26-2014 Rash [facility] Medications Current Medications Medication Drug Class(es) Dates Sig (Normalized) Sig (Original) Biotin (8 sources) BIOTIN ORAL Take by mouth. Active BIOTIN ORAL Take by mouth. 0 Active Comment on above: Take by mouth. calcium citrate 1190 mg / cholecalciferol 0.005 mg oral tablet (8 sources) Vitamin D Start: 11-30-2005 CITRACAL + D 250 MG-62.5 UNIT TAB 0 11/30/2005 Active cholecalciferol, vitamin D3, (VITAMIN D3 ORAL) (8 sources) cholecalciferol, vitamin D3, (VITAMIN D3 ORAL) Take by mouth. Active cholecalciferol, vitamin D3, (VITAMIN D3 ORAL) Take by mouth. 0 Active Comment on above: Take by mouth. estradiol 0.01 mg vaginal insert (8 sources) Estrogen Start: 04-14-20 21 Estradiol (YUVAFEM) 10 mcg vaginal tablet Indications: Vaginal atrophy , Dyspareunia, female Use 1 tablet vaginally once daily. For two weeks then twice weekly. 24 tablet 5 04/14/2021 Active Comment on above: Use 1 tablet vaginal ly once daily. For two weeks then twice weekly. levothyroxine sodium 0.075 mg oral tablet (8 sources) l-Thyroxine take 1 tablet by mouth once daily before breakfast levothyroxine (SYNTHROID) 75 mcg tablet Take 75 mcg by mouth daily before breakfast. Active Comment on above: Take 75 mcg by mouth daily before breakfast. losartan potassium 50 mg oral tablet (8 sources) Angiotensin 2 Receptor [place] Start: 02-21-20 21 take 1 tablet by mouth once daily losartan (COZAAR) 50 mg tablet Take 50 mg by mouth once daily. 02/20/2021 Active Comment on above: Take 50 mg by mouth once daily. MULTIVIT,IRON,MINERAL S/LUTEIN (CENTRUM SILVER ULTRA WOMEN'S ORAL) (8 sources) MULTIVIT,IRON,NM NERA LS/LUTEIN (CENTRUM SILVER ULTRA WOMEN'S ORAL) Take by mouth. Active MULTIVIT,IRON,NM NERALS/LUTEIN (CENTRUM SILVER ULTRA WOMEN'S ORAL) Take by mouth. 0 Active Comment on above: Take by mouth. Omeprazole (8 sources) Proton Pump Inhibitor OMEPRAZOLE ORAL Take by mouth. Active OMEPRAZOLE ORAL Take by mouth. 0 Active Comment on above: Take by mouth. sertraline 50 mg oral tablet (8 sources) Serotonin Reuptake Inhibitor take 1 tablet by mouth once daily sertraline (ZOLOFT) 50 mg tablet Take 50 mg by mouth once daily. Active Comment on above: Take 50 mg by mouth once daily. Problems Active Problems Problem Classification Problem Date Documented Da te Episodic/Chronic Menopausal disorders (16 sources) Atrophic vaginitis; Translations: [Postmenopausal atrophic vaginitis] Onset: 01-24-2008 01-24-2008 Chronic Other screening for suspected conditions (not mental disorders or infectious disease) (5 sources) Patient encounter status; Translations: [Encounter for screening mammogram for malignant neoplasm of breast] Episodic Past or Other Problems Problem Classification Problem Date Documented Da te Episodic/Chronic Genitourinary symptoms and ill-defined conditions (8 sources) Dysuria; Translations: [Dysuria] Onset: 04-19-2012 04-19-2012 Episodic Other bone disease and musculoskeletal deformities (8 sources) Disorder of skeletal system; Translations: [Disorder of bone, unspecified] Onset: 01-24-2008 01-24-2008 Episodic Other endocrine disorders (8 sources) Hypotestosteroni sm; Translations: [Endocrine disorder, unspecified] Onset: 06-25-2013 06-25-2013 Episodic Residual codes; unclassified (8 sources) Reduced libido; Translations: [Decreased libido] Onset: 06-25-2013 06-25-2013 Episodic Results Test Name Value Interpretation Reference Range Facil natalee Irby 04-03-2024 JOSE Telephone ([facility] YANIQUE WILLIAMSON ([id number]) 1950 F Date Time Provider Department 04/03/24 ANNELISE SANTOSB During your visit today, we recorded the following information about you: Oscar Peña 04/03/2024 8:50 AM Signed Patient is requesting screening mammogram order. Please advise. Thank you! Annelise Santos APRN.CNM 04/03/2024 9:27 AM Signed Order signed. Annelise Santos APRN.CNM Allergies As of Date: 04/03/2024 Noted Allergy Reaction NEOSPORIN (BENZALKONIUM CHLORIDE) 06/26/2014 2 - Rash Date Reviewed: 04/14/2021 Reviewed by: Billie Garcia Ma - Fully Assessed Reason for Visit: Orders [681] Primary Visit Diagnosis:Encounter for screening mammogram for malignant neoplasm of breast [Z12.31] Order(s):[facility] SCREENING W FAYE [[id number]] Order #: [id number] FUTURE Prescriptions as of 04/25/2024 - losartan (COZAAR) 50 mg tablet Take 50 mg by mouth once daily. - levothyroxine (SYNTHROID) 75 mcg tablet Take 75 mcg by mouth daily before breakfast. - cholecalciferol, vitamin D3, (VITAMIN D3 ORAL) Take by mouth. - BIOTIN ORAL Take by mouth. - Estradiol (YUVAFEM) 10 mcg vaginal tablet Use 1 tablet vaginally once daily. For two weeks then twice weekly. - OMEPRAZOLE ORAL Take by mouth. - MULTIVIT,IRON,MINERA LS/LUTEIN (CENTRUM SILVER ULTRA WOMEN'S ORAL) Take by mouth. - sertraline (ZOLOFT) 50 mg tablet Take 50 mg by mouth once daily. 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, M94.9] 01/24/2008 SYMPTOMATIC FEMALE CLIMACTERIC STATE [N95.1] 02/25/2009 Dysuria [R30.0] 04/19/2012 Hypotestosteronemia [E34.9] 06/25/2013 Decreased libido [R68.82] 06/25/2013 Encounter Status:Closed by OSCAR PEÑA on 04/25/24 Normal [facility] JUANITA SCREENINGon 04-21-2023 [facility] JUANITA DIAG W FAYE LTon 022 [facility] ic JUANITA SCREENINGon 04-15-2022 [facility] Encounters Encounter Date Encounter Type Care Provider Facility Start: 04-03-2024 End: 04-25-2024 Telephone encounter Annelise Santos APRN.CNM Work Phone: Radiology Comment on above: Orders Start: 04-21-2023 Documentation procedure Mammog amena Coordinator [facility] Start: 04-21-2023 Letter encounter Mammography Coordinator [facility] Department Start: 04-21-2023 End: 04-21-2023 Subsequent hospital visit by physician Screen Mammo [facility] M[facility]ogram Comment on above: Encounter for screen ing mammogram for malignant neoplasm of breast [Z12.31] Start: 06-16-2022 End: 06-16-2022 Subsequent hospital visit by physician Diagnostic Mammo [facility] Mammogram Start: 04-16-2022 Orders Only Sully ruiz MD Work Phone: OB/Gynecology Start: 04-15-2022 Documentation procedure Mammog amena Coordinator [facility] Start: 04-15-2022 Letter encounter Mammography Coordinator [facility] Department Start: 04-15-2022 End: 04-15-2022 Subsequent hospital visit by physician Screen Mammo [facility] Mammogram Comment on above: Encounter for screen ing mammogram for malignant neoplasm of breast [Z12.31] Start: 02-02-2022 Orders Only Sully ruiz MD Work Phone: [facility] Comment on above: Encounter for screen ing mammogram for malignant neoplasm of breast (Primary Dx) Procedures Date Procedure Procedure Detail Performing Clinician Start: 04-21-2023 Screening mammograph y bi 2-view breast inc cad Genna Hunter STORE FACILITY TECHNICIAN.[employer] OFFICER Work Phone: Start: 06-16-2022 JUANITA SAIGEG W FAYE LEFT Am y Elsa CORONADO.[employer] AND BORDER OFFICER Work Phone: Start: 04-15-2022 End: 04-15-2022 Screening mammography bi 2-view breast inc cad Mary Kate Silvacalf STORE FACILITY TECHNICIAN.[employer] AND BORDER OFFICER Work Phone: Start: 04-14-2021 Mammography Sully martinez MD Work Phone: Start: 02-15-2005 Colonoscopy Sully martinez MD Work Phone: Start: 12-09-2003 Lipid 1996 panel - S clarence or Plasma Mammography Coordinator Plan of Treatment Date Care Activity Detail Author Start: 05-08-2024 End: 05-08-2024 Patient encounter procedure Mammogram Comment on above: SCREENING ANNUAL Start: 03-18-2024 Covid-19 Vaccine ( season) Covid-19 Vaccine () [facility] Start: 03-18-2024 Influenza vaccination Influenza Vacc ine (#1) [facility] Start: 07-18-2023 Advance Directive Discussion Advance Directive Discussion [facility] Start: 04-15-2023 Mammography MAMMOGRAM [facility] Start: 03-18-2023 Covid-19 Vaccine ( season) Covid-19 Vaccine ( season) [facility] Start: 01-08-2023 RSV Vaccine (1 - 1-d ose 75+ series) RSV Vaccine (1 - 1-dose 75+ series) [facility] Start: 07-18-2022 Advance Directive Discussion Advance Directive Discussion [facility] Start: 07-18-2022 Depression Assessment Depression Ass essment [facility] Start: 04-14-2022 Mammography MAMMOGRAM [facility] Start: 03-18-2022 Influenza vaccination INFLUENZA (#1) [facility] Start: 08-10-2021 COVID-19 VACCINE (4 - Booster for Moderna series) COVID-19 VACCINE (4 - Booster for Moderna series) [facility] Start: 08-10-2021 Covid-19 Vaccine (4 - Moderna series) Covid-19 Vaccine (4 - Moderna series) [facility] Start: 07-18-2021 ADVANCE DIRECTIVE DISCUSSION ADVANCE DIRECTIVE DISCUSSION [facility] Start: 07-18-2021 DEPRESSION ASSESSMENT DEPRESSION ASS ESSMENT [facility] Start: 02-24-2021 COVID-19 VACCINE (3 - Booster for Moderna series) COVID-19 VACCINE (3 - Booster for Moderna series) [facility] Start: 02-15-2015 Colonoscopy COLONOSCOPY [facility] Start: 02-15-2015 COLORECTAL CANCER SCREENING COLORECTAL CANCER SCREENING [facility] Start: 01-08-2013 Pneumococcal Vaccine : 65+ (1 - PCV) Pneumococcal Vaccine: 65+ (1 - PCV) [facility] Start: 01-08-2013 PNEUMOCOCCAL: 65+ (1 - PCV) PNEUMOCOCCAL: 65+ (1 - PCV) [facility] Start: 12-08-2008 Lipid 1996 panel - S clarence or Plasma Lipid Screening [facility] Start: 12-08-2008 LIPID SCREEN LIPID SCREEN [facility] Start: 2008 RSV Vaccine (1 - 1-d ose 60+ series) RSV Vaccine (1 - 1-dose 60+ series) [facility] Start: 01-08-1998 SHINGRIX VACCINE (1 of 2) SHINGRIX VACCINE (1 of 2) [facility] Start: 01-08-1993 COLOGUARD (FIT-DNA) COLOGUARD (FIT-D NA) [facility] Start: 01-08-[address] COL[address]GR[address] [facility] Start: 01-08-1993 DIABETES SCREEN DIABETES SCREEN [facility] Start: 01-08-1993 Diabetes Screening Diabetes Screenin g [facility] Start: 01-08-1993 FECAL OCCULT BLOOD FECAL OCCULT BLOO D [facility] Start: 01-08-1993 SIGMOIDOSCOPY SIGMOIDOSCOPY [facility] Start: 01-08-1967 Urine microalbumin profile [facility] Start: 01-08-1966 Anxiety Screening Anxiety Screening [facility] Start: 01-08-1966 Depression Screening Depression Scre ening [facility] Start: 01-08-1966 HEPATITIS C SCREENING HEPATITIS C [facility] Start: 01-08-1966 Hepatitis C screening Hepatitis C Sc [facility] Start: 1960 Adult depression screening assessment DEPRESSION SCREENING [facility] End: 05-03-2025 DBT Breast - bilateral screening JUANITA SCREENING W FAYE Radiology Routine Encounter for screening mammogram for malignant neoplasm of breast 1 Occurrences starting 04/03/2024 until 05/03/2025 [facility] Work Phone: Comment on above: 1 Occurrences starti ng 04/03/2024 until 05/03/2025 End: 03-04-2023 Screening mammography bi 2-view breast inc cad JUANITA SCREENING Radiology Routine Encounter for screening mammogram for malignant neoplasm of breast 1 Occurrences starting 02/04/2022 until 03/04/2023 [facility] Work Phone: Comment on above: 1 Occurrences starti ng 02/04/2022 until 03/04/2023 [facility] Immunizations Immunization Date Immunization Notes Care Provider Fa cili 04-20-2023 influenza virus vacc ine, unspecified formulation Annelise Santos APRN.CNM Work Phone: [facility] Payers Date Payer Category Payer Unknown VIDYA DASILVA CT DICARE SUPPLEMENT [id number] 2016-Present [phone] [address] [place] [id number] Indemnity [id number] 2016 Unknown VIDYA MURCIACANDELARIA STAUFFER DICARE SUPPLEMENT [id number] 2016-Present [phone] [address] [place] [id number] Indemnity [id number] 2012 Medicare MEDICARE MEDICAR E A AND B [id number] 2012-Present [phone] [place] [address] Medicare [id number] 2012 Medicare MEDICARE MEDICAR E A AND B [id number] 2012-Present [phone] [place] [address] Medicare [id number] Social History Date Type Detail Facility Start: 04-19-2012 Tobacco smoking stat us MEIS Never smoked tobacco [facility] Start: 04-14-2021 Alcohol intake Current drinke r of alcohol (finding) [facility] Start: 1950 Sex Assigned At Not on file [facility] Start: 01-23-2022 End: 06-16-2022 Exposure to SARS-CoV-2 (event) Not sure [facility] Start: 04-19-2012 Tobacco use and exposure Smokeless tobacco non-user [facility] Work Phone: Start: 04-14-2021 End: 08-13-2022 History of Social function [facility] Start: 04-14-2021 End: 08-13-2022 Tobacco use panel [facility] National Score (1-100), lower number is lower risk 34 [facility] Clinical Notes 04-15-2022 to 04-03-2024 Telephone Encounter - Annelise Santos APRN.CNM - 04/03/2024 9:27 AM EDTTelephone Encounter - Annelise Santos APRN.CNM - 04/03/2024 9:27 AM EDTLetter - Coordinator, Mammography - 04/21/2023 5:17 PM EDT Note Date & Type Note Facility 04-03-2024 Telephone encount er Note Order signed. Annelise Santos APRN.CNM [facility] 04-03-2024 Miscellaneous Notes Formattin g of this note might be different from the original. Order signed. Annelise Santos APRN.CNM Patient is requesting screening mammogram order. Please advise. Thank you! documented in this encounter [facility] 04-03-2024 Telephone encount er Note Patient is requesting screening mammogram order. Please advise. Thank you! [facility] 04-21-2023 Miscellaneous Notes Formattin g of this note might be different from the original. April 22, 2023 PID: [id number] Yanique Williamson [address] [place] [address] Dear Ms. Williamson, We are pleased to inform you that the results of your recent breast imaging exam on 04/21/2023 are normal. Early detection of cancer is very important. We also understand recommendations regarding breast cancer screening are controversial. Please discuss with your primary care provider which strategy is best for you and whether a mammogram is right for you. Your imaging studies and report will be kept on file at [facility] as part of your permanent medical record and are available for your continuing care. Thank you for allowing us to help in meeting your health care needs. Sincerely, Dr. Light Interpreting Radiologist [facility] (Normal over 40) documented in this encounter [facility] 04-21-2023 History of Presen t illness Narrative Radiology Service Progress Note PATIENT NAME: Yanique Williamson DATE OF SERVICE: April 21, 2023 TIME: 1:23 PM PATIENT IDENTITY VERIFICATION COMPLETED USING TWO (2) IDENTIFIERS: Name and Date of confirmed by patient verbally. FALL SCREENING: Has the patient had 2 falls in the last year or 1 fall with injury or currently using an Ambulatory Assistive Device (Walker, Cane, Wheelchair, Crutches, etc.)? No PATIENT GENDER DATA: Female. status: : No status: NO. PATIENT RELEVANT IMPLANT DATA REVIEWED: Not Applicable RADIOLOGY DEPARTMENT: Mammography PERIPHERAL IV DATA: Not applicable SIGNED BY: Ry Hidalgoo Lalo April 21, 2023 1:23 PM documented in this encounter [facility] 06-16-2022 History of Presen t illness Narrative Radiology Service Progress Note PATIENT NAME: Yanique Williamson DATE OF SERVICE: June 16, 2022 TIME: 2:30 PM PATIENT IDENTITY VERIFICATION COMPLETED USING TWO (2) IDENTIFIERS: Name and Date of confirmed by patient verbally. FALL SCREENING: Has the patient had 2 falls in the last year or 1 fall with injury or currently using an Ambulatory Assistive Device (Walker, Cane, Wheelchair, Crutches, etc.)? No PATIENT GENDER DATA: Female. status: : No status: NO. PATIENT RELEVANT IMPLANT DATA REVIEWED: Not Applicable RADIOLOGY DEPARTMENT: Mammography PERIPHERAL IV DATA: Not applicable SIGNED BY: RT Karo(R) June 16, 2022 2:30 PM documented in this encounter [facility] 04-15-2022 Miscellaneous Notes Formattin g of this note might be different from the original. April 15, 2022 PID: [id number] Yanique Williamson [address] [place] [id number] Dear Ms. Williamson, Your recent breast imaging exam on 04/15/2022 showed a possible finding that requires additional imaging studies for a complete evaluation. Most such findings are probably benign (not cancer). If you have a healthcare provider who ordered/prescribed your screening mammogram: Please call [phone] or [phone]: [phone] to schedule an appointment for your additional imaging (if you have not already done so). If you DO NOT have a healthcare provider (ie you did not have an order/prescription for your screening mammogram): Please call to schedule an appointment for your additional imaging (if you have not already done so). You must have an order/prescription from your physician when calling to schedule your appointment. If your order/prescription is not electronic, you must bring the hard copy with you on the day of your exam to avoid delays. Your imaging studies and reports are kept on file at [facility] as part of your permanent medical record, and are available for your continuing care. Thank you for allowing us to help in meeting your health care needs. Sincerely, Dr. Padgett Interpreting Radiologist [facility] (Additional imaging) documented in this encounter [facility] 04-15-2022 History of Presen t illness Narrative Radiology Service Progress Note PATIENT NAME: Yanique Williamson DATE OF SERVICE: April 15, 2022 TIME: 8:44 AM PATIENT IDENTITY VERIFICATION COMPLETED USING TWO (2) IDENTIFIERS: Name and Date of confirmed by patient verbally. FALL SCREENING: Has the patient had 2 falls in the last year or 1 fall with injury or currently using an Ambulatory Assistive Device (Walker, Cane, Wheelchair, Crutches, etc.)? No PATIENT GENDER DATA: Female. status: : No status: NO. PATIENT RELEVANT IMPLANT DATA REVIEWED: Not Applicable RADIOLOGY DEPARTMENT: Mammography PERIPHERAL IV DATA: Not applicable SIGNED BY: RT Erick(R) April 15, 2022 8:44 AM documented in this encounter [facility] Evaluation note Diagnosis Encounter for screening mammogram for malignant neoplasm of breast- Primary Other screening mammogram [facility] Diagnosis Encounter for screening mammogram for malignant neoplasm of breast Other screening mammogram [facility] Diagnosis Encounter for screening mammogram for malignant neoplasm of breast Other screening mammogram [facility] Diagnosis Abnormal mammogram Abnormal mammogram, unspecified [facility] Diagnosis Encounter for screening mammogram for malignant neoplasm of breast- Primary Other screening mammogram [facility] Diagnostic Procedure Only (Routine) - Pending Review Specialty Diagnoses / Procedures Referred By Joseph birmingham Referred To Contact [facility] Diagnoses Encounter for screening mammogram for malignant neoplasm of breast Procedures JUANITA SCREENING SCREENING MAMMOGRAPHY BI 2-VIEW BREAST INC Mary Kate Feng, CLIFF.[employer] C[employer]S AND BORDER OFFICER [address] [address] [facility] [address] [place] [address] Referral ID Status Reason Start Date Expiration Date Visits Requested Visits Authorized [id number] Pending Review Auto-Generat ed Referral 02/04/2022 03/04/2023 1 1 [facility] for referral (narrative)* Diagnostic Procedure Only (Routine) - Closed Specialty Diagnoses / Procedures Referred By Contac t Referred To Contact [facility] Diagnoses Encounter for screening mammogram for malignant neoplasm of breast Procedures JUANITA SCREENING SCREENING MAMMOGRAPHY BI 2-VIEW BREAST INC CAD Mary Kate Dupree APRN.[employer] AND BORDER OFFICER [address] [place] [address] [facility] [address] [place] [address] Referral ID Status Reason Start Date Expiration Date V isits Requested Visits Authorized [id number] Closed Auto-Generate d Referral 02/04/2022 03/04/2023 1 1 [facility] for referral (narrative)* Diagnostic Procedure Only (Routine) - Closed Specialty Diagnoses / Procedures Referred By Joseph birmingham Referred To Contact [facility] Diagnoses Encounter for screening mammogram for malignant neoplasm of breast Procedures JUANITA SCREENING SCREENING MAMMOGRAPHY BI 2-VIEW BREAST INC CAD Genna Hunter APRN.[employer]S AND BORDER OFFICER [address] [place] [address] [facility] [address] [place] [address] Referral ID Status Reason Start Date Expiration Date V isits Requested Visits Authorized [id number] Closed Auto-Generate d Referral 06/16/2022 07/16/2023 1 1 [facility] for referral (narrative)* Diagnostic Procedure Only (Routine) - Authorized Specialty Diagnoses / Procedures Referred By Contac t Referred To Contact [facility] Diagnoses Encounter for screening mammogram for malignant neoplasm of breast Procedures JUANITA SCREENING W FAYE SCREENING DIGITAL BREAST TOMOSYNTHESIS BI SCREENING MAMMOGRAPHY BI 2-VIEW BREAST INC CAD Annelise Santos APRN.CNM [address] [place] [address] [facility] [address] [place] [address] Referral ID Status Reason Start Date Expiration Date Visits Requested Visits Authorized [id number] Authorized Auto-Generat ed Referral 04/03/2024 05/03/2025 1 1 [facility] for visit Narrative* Diagnostic Procedure Only (Routine) - Closed Specialty Diagnoses / Procedures Referred By Contac t Referred To Contact [facility] Diagnoses Encounter for screening mammogram for malignant neoplasm of breast Procedures JUANITA SCREENING SCREENING MAMMOGRAPHY BI 2-VIEW BREAST INC CAD Mary Kate Dupree, STORE FACILITY TECHNICIAN.[employer] AND BORDER OFFICER [address] [place] [address] [facility] [address] [place] [address] Referral ID Status Reason Start Date Expiration Date V isits Requested Visits Authorized [id number] Closed Auto-Generate d Referral 02/04/2022 03/04/2023 1 1 [facility] for visit Narrative* Diagnostic Procedure Only (Routine) - Closed Specialty Diagnoses / Procedures Referred By Contnoman t Referred To Contact [facility] Diagnoses Encounter for screening mammogram for malignant neoplasm of breast Procedures JUANITA SCREENING SCREENING MAMMOGRAPHY BI 2-VIEW BREAST INC CAD Genna Hunter, STORE FACILITY TECHNICIAN.[employer] C[employer] AND BORDER OFFICER [address] [place] [address] [facility] [address] [place] [address] Referral ID Status Reason Start Date Expiration Date V isits Requested Visits Authorized [id number] Closed Auto-Generate d Referral 06/16/2022 07/16/2023 1 1 [facility] [facility] N[facility]ative* Diagnostic Procedure Only (Routine) - Closed Specialty Diagnoses / Procedures Referred By Contnoman t Referred To Contact [facility] Diagnoses Abnormal mammogram Procedures [facility] DIAGNOST[facility] LT DIAGNOSTIC MAMMOGRAPHY COMPUTER-AIDED DETCJ UNI Genna Hunter STORE FACILITY TECHNICIAN.[employer] [address] [place] [address] [facility] [address] [place] [address] Referral ID Status Reason Start Date Expiration Date V isits Requested Visits Authorized [id number] Closed Auto-Generate d Referral 04/15/2022 05/15/2023 1 1 [facility] Summary Purpose Family History No Family History Records Found Advance Directives No Advanced Directives Records Found Additional Source Comments Source Comments (unrecognize d section and content) In the event this informatio n is protected by the Federal Confidentiality of Alcohol and Drug Abuse Patient Records regulations: The Federal rules restrict any use of the information to criminally investigate or prosecute any alcohol or drug abuse patient.[facility] the event this information is protected by the Federal Confidentiality of Alcohol and Drug Abuse Patient Records regulations: The Federal rules restrict any use of the information to criminally investigate or prosecute any alcohol or drug abuse patient.[facility] the event this information is protected by the Federal Confidentiality of Alcohol and Drug Abuse Patient Records regulations: The Federal rules restrict any use of the information to criminally investigate or prosecute any alcohol or drug abuse patient.[facility] the event this information is protected by the Federal Confidentiality of Alcohol and Drug Abuse Patient Records regulations: The Federal rules restrict any use of the information to criminally investigate or prosecute any alcohol or drug abuse patient.[facility] the event this information is protected by the Federal Confidentiality of Alcohol and Drug Abuse Patient Records regulations: The Federal rules restrict any use of the information to criminally investigate or prosecute any alcohol or drug abuse patient.[facility] the event this information is protected by the Federal Confidentiality of Alcohol and Drug Abuse Patient Records regulations: The Federal rules restrict any use of the information to criminally investigate or prosecute any alcohol or drug abuse patient.[facility] the event this information is protected by the Federal Confidentiality of Alcohol and Drug Abuse Patient Records regulations: The Federal rules restrict any use of the information to criminally investigate or prosecute any alcohol or drug abuse patient.[facility] the event this information is protected by the Federal Confidentiality of Alcohol and Drug Abuse Patient Records regulations: The Federal rules restrict any use of the information to criminally investigate or prosecute any alcohol or drug abuse patient.[facility] Care Teams (unrecognized sec tion and content) Parliamentary Librarian Relationship Specialty Start Date End Date Manohar Goodrich MD [address] [place] [address] PCP - General Family Practice 06/26/14 Parliamentary Librarian Relationship Specialty Start Date End Date Manohar Goodrich MD [address] [place] [address] PCP - General Family Medicine 06/26/14 Parliamentary Librarian Relationship Specialty Start Date End Date Manohar Goodrich MD [address] [place] [id number] PCP - General Family Medicine 06/26/14 Parliamentary Librarian Relationship Specialty Start Date End Date Manohar Goodrich MD [address] [facility] [place] [address] PCP - General Family Medicine 06/26/14 Parliamentary Librarian Relationship Specialty Start Date End Date Manohar Goodrich MD [address] [place], [place] [address] [address] PCP - General Family Medicine 06/26/14 Parliamentary Librarian Relationship Specialty Start Date End Date Manohar Goodrich MD [facility] [place] [address] PCP - General Family Medicine 06/26/14 Parliamentary Librarian Relationship Specialty Start Date End Date Manohar Goodrich MD [address] [facility] [place] [address] PCP - General Family Medicine 06/26/14 INFORMATION SOURCE (unrecogn ized section and content) DATE CREATED AUTHOR 04/27/2024 [facility] Reason for Visit (unrecogniz ed section and content) Reason Comments Orders FOR RECORDS PERTAINING TO PATIENTS WHO ARE OR HAVE BEEN ENROLLED IN A CHEMICAL DEPENDENCY/SUBSTANCEABUSE PROGRAM, SOME INFORMATION MAY BE OMITTED. This clinical summary was aggregated from multiple sources. Caution should be exercised in using it in the provision of clinical care. This summary normalizes information from multiple sources, and as a consequence, information in this document may materially change the coding, format and clinical context of patient data. In addition, data may be omitted in some cases. CLINICAL DECISIONS SHOULD BE BASED ON THE PRIMARY CLINICAL RECORDS. [facility] [employer] [facility]. provides no warranty or guarantee of the accuracy or completeness of information in this document.
[2024-05-01 10:47] LABS: ALB/GLOB Ratio 1.2 RATIO (0.9-2.4); AST(SGOT) 15 U/L (15-37); Alanine Aminotransfer ALT/SGPT 21 U/L (13-56); Albumin, Serum 3.6 g/dL (3.2-5.0); Alkaline Phosphatase 54 U/L (45-117); Anion Gap 6 (5-15); BUN 17 mg/dL (7-18); BUN/Creat Ratio 32.1 RATIO (10-20); Chloride 97 mmol/L (98-107); Cholesterol 239 mg/dL (200); Creatinine, Serum 0.53 mg/dL (0.55-1.02); EST Glomerular Filtration Rate 119 mL/min (>60); Est Glom Filt Rate - Afr Amer 144 mL/min (>60); Globulin 3.1 g/dL (2.2-4.2); Glucose 83 mg/dL (74-106); High Density Lipoprotein 123 mg/dL; Potassium 3.9 mmol/L (3.5-5.1); Protein, Total 6.7 g/dL (6.4-8.2); Sodium Level 131 mmol/L (136-145); T4 Free Direct 0.87 ng/dL (0.76-1.46); Triglycerides 47 mg/dL; Very Low Density Lipoprotein 9 mg/dL (5-40)
== END 2024-05-01 23:59 | disposition home or self-care (01) ==
LOC: MTLAB 07:01
PROVIDERS: PCP Family Medicine; Referring Provider Family Medicine; Visit Provider Family Medicine
DX: Z00.00 Encounter for general adult medical examination without abnormal findings (principal)
CPT/HCPCS: 36415; 80053; 80061; 82306; 84439; 84443

== ENCOUNTER → 2024-06-21 | Outpatient (CLI) | payer MEDICARE, BC, SELFPAY ==
--- NOTE | 2024-06-21 08:28 | BD_ITS ---
STUDY: DUAL ENERGY X-RAY ABSORPTIOMETRY / DXA REASON FOR EXAM: Female, 74 years old. M85.89 TECHNIQUE: Bone Mineral Density (BMD) measurements of lumbar spine and bilateral hips were obtained. COMPARISON: Comparison is made with prior study April 15, 2022. FINDINGS: Lumbar Spine (L1-L4): g/cm2 (0.794) / T-score (-2.3) / Z-score (0.2) Findings are suggestive of osteopenia with a high fracture risk. Left Femur Total: g/cm2 (0.736) / T-score (-1.7) / Z-score (0.2) Left Femoral Neck: g/cm2 (0.666) / T-score (-1.6) / Z-score (0.5) Right Femur Total: g/cm2 (0.741) / T-score (-1.6) / Z-score (0.2) Right Femoral Neck: g/cm2 (0.643) / T-score (-1.9) / Z-score (0.3) The T-Scores on the most recent prior examination were: Lumbar Spine (L1-L4): There has been improvement of bone density since the previous examination. Left Femur Total: which represents a worsening of 3.5%. Right Femur Total: which represents a worsening of 0.6%. BD/Dexa Bone Density Study IMPRESSION: The patient is considered osteopenic as outlined below according to World [place] [employer] Organization (WHO) criteria with a high fracture risk. There has been worsening of bone density since the previous examination. Reference Information: The T-score is the number of standard deviations above or below the standard which is normal for young adults at their peak bone mineral density. The World Health Organization (WHO) interprets the T-scores as follows: Above -1 Normal bone density Between -1 and -2.5 Osteopenia Equal to / or below -2.5 Osteoporosis As a practical clinical guideline, osteopenia may be graded as follows: Mild -1 through -1.5 Moderate -1.6 through -2.0 Severe -2.1 through -2.4 The Z-score is the number of standard deviations above or below age-matched controls. A Z-score of less than -1.5 would be considered abnormal. References: 1. NIH Osteoporosis and Related Bone Diseases www osteo.org 2. International Society for Clinical Densitometry www iscd.org 3. National Osteoporosis Foundation www nof.org Electronically Signed: Travis Ribeiro MD at 12:25 EST ,
== END | disposition home or self-care (01) ==
LOC: OPBD 08:24
PROVIDERS: PCP Family Medicine; Referring Provider Family Medicine; Visit Provider Family Medicine
DX: M85.89 Other specified disorders of bone density and structure, multiple sites (principal)
CPT/HCPCS: 77080

== ENCOUNTER → 2024-10-22 | Outpatient (CLI) | payer MEDICARE, BC, SELFPAY ==
[2024-10-22 13:55] LABS: Anion Gap 11 (5-15); BUN 16 mg/dL (4-19); BUN/Creat Ratio 28.5 RATIO (10-20); Calcium,Total 9.2 mg/dL (7.6-11.0); Chloride 97 mmol/L (98-108); Creatinine, Serum 0.57 mg/dL (0.70-1.20); EST Glomerular Filtration Rate 94 (>60); Glucose 93 mg/dL (70-99); Potassium 4.1 mmol/L (3.3-5.1); Sodium Level 131 mmol/L (133-145)
[2024-10-22 13:58] LABS: Vitamin D,25 Hydroxy 97.4 ng/mL (30-100)
== END | disposition home or self-care (01) ==
LOC: MFPLAB 10:11
PROVIDERS: PCP Family Medicine; Referring Provider Family Medicine; Visit Provider Family Medicine
DX: E03.9 Hypothyroidism, unspecified (principal); E22.2 Syndrome of inappropriate secretion of antidiuretic hormone
CPT/HCPCS: 36415; 80048; 82306; 84443